=== PATIENT | female | born 1970 | race Caucasian/White ===

== ENCOUNTER 2021-03-19 08:32 | Outpatient (CLI) | payer BC ==
[2021-03-20 08:03] LABS: SARS-CoV-2 PCR by NAA Not Detected (NotDetected)
== END 2021-03-19 08:33 | disposition home or self-care (01) ==
LOC: LABBT 08:32
PROVIDERS: ATTEND Internal Medicine Gastroenterology
DX: Z01.812 Encounter for preprocedural laboratory examination (principal); Z20.822 Contact with and (suspected) exposure to COVID-19; Z80.0 Family history of malignant neoplasm of digestive organs
CPT/HCPCS: U0003; U0005

== ENCOUNTER 2021-03-21 07:58 | Day surgery (SDC) | payer BC ==
[2021-03-20 12:01] VITALS: BMI 24.4
[2021-03-21] MEDS ORDERED: PROPOFOL 200 MG/20 ML VIAL ONE (10:31)
[2021-03-21] MEDS ORDERED: ePHEDrine 50 MG/ML VIAL ONE (10:31)
== END 2021-03-21 11:50 | disposition home or self-care (01) ==
LOC: SDC 07:58
PROVIDERS: ATTEND Internal Medicine Gastroenterology
PROC: 0DJD8ZZ Inspection of Lower Intestinal Tract, Via Natural or Artificial Opening Endoscopic (ICD-10-PCS; principal; 2021-03-21)
DX: Z12.11 Encounter for screening for malignant neoplasm of colon (principal); Z80.0 Family history of malignant neoplasm of digestive organs; Z83.71 Family history of colonic polyps; Z95.810 Presence of automatic (implantable) cardiac defibrillator
CPT/HCPCS: J2704; J3490

== ENCOUNTER 2023-01-28 13:39 | Outpatient (CLI) | payer BC | END 2023-01-28 13:40 | disposition home or self-care (01) | LOC: ULT 13:39 | PROVIDERS: ATTEND Family Medicine | DX: R22.32 Localized swelling, mass and lump, left upper limb (principal) | CPT/HCPCS: 76999 ==